=== PATIENT | male | born 2000 | race Two or more races ===

== ENCOUNTER 2021-08-19 12:34 | Outpatient (REF) | payer MEDICAID, SELFPAY ==
[2021-08-19 15:54] LABS: COVID-19 Test Positive (Negative)
== END 2021-08-19 12:35 | disposition home or self-care (01) ==
LOC: HO.LAB 12:34
PROVIDERS: Visit Provider Internal Medicine
DX: Z20.822 Contact with and (suspected) exposure to COVID-19 (principal)
CPT/HCPCS: 87635; C9803

== ENCOUNTER 2021-08-26 12:52 | Outpatient (REF) | payer MEDICAID, SELFPAY ==
[2021-08-26 13:21] LABS: Binax Internal Control QC Valid; Binax Now Covid-19 Ag Negative (Negative)
== END 2021-08-26 12:53 | disposition home or self-care (01) ==
LOC: HO.LAB 12:52
PROVIDERS: Visit Provider Internal Medicine
DX: Z20.822 Contact with and (suspected) exposure to COVID-19 (principal)
CPT/HCPCS: C9803

== ENCOUNTER 2023-02-17 10:31 | Outpatient (REF) | payer SELFPAY ==
[2023-02-17 13:05] LABS: ~Hepatitis C Antibody Nonreactive (Nonreactive)
[2023-02-19 15:38] LABS: HIV RNA PCR Qn Copies NOT DETECTED copies/mL (NOT DETECTED); HIV RNA PCR Qn Log Copies NOT DETECTED (NOT DETECTED)
== END 2023-02-17 10:32 | disposition home or self-care (01) ==
LOC: HO.HHCL 10:31
PROVIDERS: Visit Provider Family Medicine
DX: Z11.3 Encounter for screening for infections with a predominantly sexual mode of transmission (principal); Z11.4 Encounter for screening for human immunodeficiency virus [HIV]
CPT/HCPCS: 36415; 86803; 87536

== ENCOUNTER 2023-03-26 13:07 | Outpatient (REF) | payer MEDICAID, SELFPAY ==
[2023-03-27 04:07] LABS: CT PCR NOT DETECTED (Not Detect.); NG PCR NOT DETECTED (Not Detect.)
== END 2023-03-26 13:08 | disposition home or self-care (01) ==
LOC: HO.HHCL 13:07
PROVIDERS: Visit Provider Family Medicine
DX: Z11.3 Encounter for screening for infections with a predominantly sexual mode of transmission (principal)
CPT/HCPCS: 0353U

== ENCOUNTER 2023-06-24 09:40 | Outpatient (REF) | payer MEDICAID, SELFPAY | END 2023-06-24 09:41 | disposition home or self-care (01) | LOC: HO.HHCL 09:40 | PROVIDERS: Visit Provider Emergency Medicine | DX: Z13.89 Encounter for screening for other disorder (principal) ==

== ENCOUNTER 2024-06-13 11:31 | Outpatient (AMB) | payer OTHER, SELFPAY ==
--- NOTE | 2024-06-13 11:34 | A.OFFPC_ITS ---
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 Intake Note: new patient to establish care Operating Room Rn Required: No Allergies aspirin Allergy (Severe, Verified 06/13/24 11:49) Difficulty Breathing Medication List - Last Reconciled 06/13/24 by JACKSON Lopez No Known Home Meds Tobacco use date assessed: 06/13/24 Dental Screening Dental Screen Date: 06/13/24 Did you have a dental visit in the last 12 months?: Yes Did you have a dental problem in the last 6 months where you did not have access to dental care?: No Was dental information given to patient?: Patient has dentist HPI HPI Comments History of Present Illness Details 23 y/o M with seasonal allergies, Pyroni es Social: [place] , to male. family hx: Dad ESRD, Brother alive, Mom alive HTN Surgery: none Health Maintenance: Tdap 2020 Flu declined today, will get @ [employer] for the 2023 Specialists: Uro, missed appt d/t . Needs new referral. 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 Here today to est care and for a CPE. Limited [facility] Care records available. He feels well. Unsure of reason for Dads ESRD. Did require transplant. Skin - has dry, sensitive skin. Applies lotion, cool showers. Using coconut oil + effect. Sleep - works overnights. Appetite/Diet is ok. Engagement in risky behaviors: none Plan Offered and declined screening labs Uro and Optho referrals placed RTO 1 year for CPE, sooner PRN PFSH Medical History (Updated 06/13/24 @ 13:03 by JACKSON Lopez) No pertinent past medical history Surgical History (Updated 06/13/24 @ 11:40 by Barbara Brown MA) No pertinent past surgical history Family History Maternal Grandmother Diabetes Hypertension Mother Hypertension Social History (Updated 06/13/24 @ 11:38 by Barbara Brown MA) Household Members: Significant Other Both parents involved: No Caregiver staying overnight: No Housing: House Are you a primary healthcare administration internship to a significant other at home: No Do you presently have visiting nurse or other home services: No 75 years or older and lives alone: No Alcohol intake: current Alcohol intake frequency: a few times a month Patient Tobacco Use Status: Never used Tobacco e-Cigarette/Vaping Use: Never Used Second Hand Smoke Exposure: No service: No Current occupational status: employed Current occupation: security Cognitive needs: No Hearing needs: No Vision needs: Yes (wear glasses) Questionnaire PHQ-9 Over the last 2 weeks, how often have you been bothered by any of the following problems? 1. Little interest or pleasure in doing things: not at all 2. Feeling down, depressed, or hopeless: not at all 3. Trouble falling or staying asleep, or sleeping too much: not at all 4. Feeling tired or having little energy: not at all 5. Poor appetite or overeating: not at all 6. Feeling bad about yourself - or that you are a failure or have let yourself or your family down: not at all 7. Trouble concentrating on things, such as reading the newspaper or watching television: not at all 8. Moving or speaking so slowly that other people could have noticed. Or the opposite - being so fidgety or restless that you have been moving around a lot more than usual: not at all 9. Thoughts that you would be better off or of hurting yourself in some way : not at all Total score: 0 Depression Screening Interpretation: Negative Depression Screening Done: Yes 27581 - PHQ-9 Billing: Yes Source: Developed by Drs. Martin Khan, Cecilia Soto, Benjamin Jon and colleagues, with an educational ember from [employer]. Thrive Questionnaire Date Thrive assessed: 06/13/24 I am a: Patient What is your living situation today?: I have a steady place to live Within the past 12 months, did the food you bought not last and you didn't have the money to get more?: Never true Within the past 12 months, did you worry whether your food would run out before you got money to buy more?: Never true Do you have trouble paying for medicines?: No Do you have trouble getting transportation to medical appointments?: No Do you have trouble paying your heating and electricity bill?: No Do you have trouble taking care of your child, family member or friend?: No Do you have trouble with day-to-day activities such as bathing, preparing meals, shopping, managing finances, etc.?: No Are you currently unemployed and looking for a job?: No Are you interested in more education?: No Please select the resources that you would like help with: None Currently or been in a relationship where the following occur: No concerns reported THRIVE Score: 0 AUDIT C Alcohol Use Questionnaire (AUDIT-C) 1. How often do you have a drink containing alcohol?: 2-4 times a month 2. How many drinks containing alcohol do you have on a typical day when you are drinking?: 5 or 6 3. How often do you have six or more drinks on one occasion?: Monthly Total Score: 6 Score Reviewed/Action Taken: Yes PEARL-7 AMB Questionnaire PEARL-7 Date PEARL - 7 assessed: 06/13/24 Feeling nervous, anxious, or on edge: 0 = Not at all Not being able to stop or control worryin = Not at all Worrying too much about different things: 0 = Not at all Trouble relaxin = Not at all Being so restless that it is hard to sit still: 0 = Not at all Becoming easily annoyed or irritable: 0 = Not at all Feeling afraid as if something awful might happen: 0 = Not at all Total PEARL-7 score (0-4 normal; 5-9 mild; 10-14 moderate; 15-21 severe): 0 Source: Developed by Drs. Martin Khan, Cecilia Soto, Benjamin Jon and colleagues, with an educational ember from [employer]. PEARL-7 Assessment Billing PEARL-7 Assessment Tool: PEARL-7 Assessment 14331 Review of Systems Const Details: Constitutional: Denies fever. Skin: Denies rash. Eye: Denies eye pain. ENMT: Denies sore throat and nasal congestion. Respiratory: Denies shortness of breath and cough. Gastrointestinal: Denies nausea, vomiting or abdominal pain. Cardiovascular: Denies chest pain and syncope. Genitourinary: Denies dysuria. Musculoskeletal: Denies back pain and extremity pain. Neurologic: Denies headaches, confusion, and weakness. Psychiatric: Denies suicidal thoughts and substance abuse. Allergy/ Immunologic: Denies impaired immunity. Physical exam (Primary Care) Vital Signs: Last Vital Signs Pulse 59 06/13/24 11:41 Resp 13 06/13/24 11:41 BP 117/70 06/13/24 11:41 Pulse Ox 98 06/13/24 11:41 Oxygen Delivery Method Room Air 06/13/24 11:41 BMI result Body Mass Index 27.5 Tobacco/Smoking Status: Tobacco use Status Tobacco use date assessed 06/13/24 06/13/24 11:42 Patient Tobacco Use Status Never used Tobacco 06/13/24 11:42 e-Cigarette/Vaping Use Never Used 06/13/24 11:42 PHQ-9: PHQ-9 Score PHQ-9: Total score 0 06/13/24 11:51 Depression Screening Interpretation: Negative Thrive Assessment: Date of Thrive Assessment Date Thrive assessed 06/13/24 06/13/24 11:42 Currently or been in a relationship where the following occur: No concerns reported Const Other: General: Well developed, well nourished, in no acute distress. Appears stated age. Head: Normocephalic, atraumatic. Eyes: Pupils are equal, round and reactive to light and accommodation. Conjunctivae are clear. Vision grossly normal. Ears: TMs clear AU, EACS WNL Nose: Patent, without discharge. Mouth: There are no ulcers or lesions noted. No inflammation, no post nasal drip, no plaques nor exudates. Neck: Supple, no adenopathy or thyromegaly. Lungs: Clear to auscultation bilaterally. No rales, rhonchi or wheeze noted. Good air flow in all mejía. Heart: Regular rate and rhythm. No murmurs, click, rubs or gallops are noted. Abdomen: Bowel sounds present in all quadrants. The abdomen is soft, nontender, with no masses or organomegaly noted. No hernias are noted. Musculoskeletal: Joints are nontender, without swelling, redness, or effusions. Range of motion is observed to be normal. Pulses: Peripheral pulses are equal and palpable bilaterally. Extremities: No clubbing, cyanosis nor edema is noted. Neurologic: Gait and station normal. Cranial Nerves 2-12 intact. Motor strength grossly symmetrical and intact. No sensory loss. Balance normal. Skin: No rashes, ulcers, or lesions noted. Turgor is good. Skin color is good. Hair and nails are without abnormalities. Psych: Normal eye contact, affect and mood appropriate, and normal interactions. Patient is alert and appropriate to context. Coding Level of Care Code New Pt Prev Care 18-39yr(38319 Diagnoses Encounter for general adult medical examination without abnormal findings Z00.00 Penile curve Q55.61 Blurred vision H53.8 Seasonal allergies J30.2 Additional Codes PEARL-7 Assessment Billing - PEARL-7 Assessment Tool: PEARL-7 Assessment 21320 ([id number]) PHQ-9 - 93094 - PHQ-9 Billing: Yes ([id number]) Assessment & Plan Assessment & Plan (1) Encounter for general adult medical examination without abnormal findings: Code(s): Z00.00 - Encounter for general adult medical examination without abnormal findings Plan: . (2) Penile curve: Code(s): Q55.61 - Curvature of penis (lateral) Category: Medical Plan: . (3) Blurred vision: Code(s): H53.8 - Other visual disturbances Category: Medical Plan: . (4) Seasonal allergies: Code(s): J30.2 - Other seasonal allergic rhinitis Category: Medical Plan: . Orders: Referrals Urology Referral Q55.61 - Curvature of penis (lateral) Ophthalmology Referral H53.8 - Other visual disturbances Patient Instructions: Walk-In Care (Urgent Care): We Make it Easy Walk-in for urgent medical issues such as: ? Seasonal Allergies ? Insect Bites ? Cough ? Diarrhea ? Acute Asthma Attacks ? Back, Knee or Joint Pain ? Ear Infection ? Fever without a Rash ? Headaches ? Nausea ? [place] [facility], Rash or Skin Irritation ? Sore Throat ? Sports Physicals ? Vomiting Most insurances are accepted. Patients do not need to be part of the [facility] to seek care at the walk-in clinic. Locations [facility], [place] [address] ? [phone] [facility] Walk-In [facility] in [place] provides services to ages 18 and over. Open Thursday-Thursday: 8 a.m. to 5 p.m. and Thursday: 9 a.m. to 3 p.m.* *Hours may vary due to staffing availability. To confirm Walk-In Care hours in [place], please call [phone]. [address] [facility], [place] [address] ? [phone] [facility] Walk-In [facility] in [place] provides services to ages 12 and over. Open Thursday-Thursday: 8 a.m. to 5 p.m. Hours may vary due to staffing availability. To confirm Walk-In Care hours in [place], please call [phone]. LABORATORY SERVICES: [facility] Lab ? Primary Location [address] [place] [address] Thursday through Thursday 6:00 AM ? 5:00 PM Thursday 7:00 AM ? 11:00 AM* [phone] The [facility] Lab is centrally located near the front entrance of the [facility] for easy outpatient access. Convenient parking is provided for outpatients. *Hours may vary due to staffing availability. To confirm Laboratory hours for any location, please call [phone]. Offsite Location For your convenience, we offer offsite laboratory draw stations at the following locations: [address] [place] [address] ? [address], [address] Thursday through Thursday 7:30 AM ? 1:00 PM* [phone] *Hours may vary due to staffing availability. To confirm Laboratory hours for any location, please call [phone]. [place] ? [address] Thursday through Thursday 6:00 AM ? 3:30 PM* Thursday 6:30 AM ? 3 PM* [phone] *Hours may vary due to staffing availability. To confirm Laboratory hours for any location, please call [phone] [place] [address] Thursday through Thursday 7:30 AM ? 4:00 PM* [phone] *Hours may vary due to staffing availability. To confirm Laboratory hours for any location, please call [phone] [place] [address] Thursday through 9:00 AM ? 4:00 PM* *Hours may vary due to staffing availability. To confirm Laboratory hours for any location, please call [phone]. Appointments are not necessary. Walk-ins are welcome. Like all the departments throughout the [facility], our Lab undergoes frequent reviews to ensure the quality and accuracy of test results, and our staff takes special pride in its status as a nationally accredited facility. Patient Portal: ONE PATIENT. ONE RECORD. BETTER CARE. [facility] has a fully integrated, cutting- edge mobile electronic health information system that has revolutionized the way we care for our patients and manage our organization. This system improves communication and coordination enabling us to provide safe, higher-quality care, and an overall positive experience for staff and patients. Our first priority, as always, is to deliver the highest quality care possible. The system is running in the background supporting that priority. This portal is for all [facility] services and practices. If you are experiencing any technical difficulties with enrolling or logging into the Patient Portal please complete the [facility] Patient Portal Technical Support Form. [facility] now offers a new secure on-line interactive tool for patients to review their health information ? Patient Portal. This interactive web portal will enable patients and their families to take an active role in their care by providing easy, secure access to their health information via the internet. The Patient Portal provides patients with instant access to their health information, including laboratory results, medications, allergies, demographic information, visit history, and more. In addition to managing their own care, parents and health care proxies with authorized consent will appreciate the ability to access the records of those individuals for whom they provide care. Please note: if you wish to gain access (Proxy) to another patient?s portal, you will be required to come to the Medical Records Department in person at [facility]. Both the patient giving proxy access and the proxy will need to provide photo identification and complete the appropriate authorization. The Patient Portal also allows track their appointments online. The [facility] Patient Portal also saves patients time by allowing them to submit updates to their demographic and contact information prior to their visits. Portal email notifications will also alert patients to any new activity on their portal, such as test results and new appointments. In order to initially enroll in the [facility] Patient Portal, you will need to enter some required information including the following: ? your [facility] Medical Record number ? your personal home email address ? name ? date of Please note: In order to enroll in the [facility] Patient Portal, we need to have your email address on file in your electronic medical record. The email address needs to be specific for one person (yourself) in order for your Portal enrollment to be successful. You can update your email address in person with our Registration staff when you are registering for a hospital visit. Otherwise, you will need to come to the Health Information Management (Medical Records) Department at [facility]. We are open from Thursday ? Thursday from 7:30 a.m. ? 4:30 p.m. You will be required to present a photo id. Once you have successfully enrolled in the Patient Portal, you will receive a one-time user id and password for the Portal, sent to your email address. This will allow you to log into the Patient Portal within 99 hrs and reset your own logon id and password, and define personal security questions. Once your perma nent login and password have been set, you can log into the [facility] Patient Portal at any time via the blue button above or from the Portal Logon button on any page of the [facility] website. [facility] and [facility] encourage all of our patients to enroll in Patient Portal as it presents a valuable opportunity for patients and their families to actively participate in their care and stay healthy Welcome to [facility]. We look forward to working with you. Health screenings for men ages 40 to 64 You should visit your health care provider regularly, even if you feel healthy. The purpose of these visits is to: Screen for medical issues Assess your risk for future medical problems Encourage a healthy lifestyle Update vaccinations and other preventive care services Help you get to know your provider in case of an illness Information Even if you feel fine, you should still see your provider for regular checkups. These visits can help you avoid problems in the future. For example, the only way to find out if you have high blood pressure is to have it checked regularly. High blood sugar and high cholesterol level also may not have any symptoms in the early stages. Simple blood tests can check for these conditions. There are specific times when you should see your provider or receive specific health screenings. The [place] Preventive Services Task Force publishes a list of recommended screenings. Below are screening guidelines for men ages 40 to 64. BLOOD PRESSURE SCREENING Have your blood pressure checked at least once every year. Watch for blood pressure screenings in your area. Ask your provider if you can stop in to have your blood pressure checked. Ask your provider if you need your blood pressure checked more often if: You have diabetes, heart disease, kidney problems, or are overweight or have certain other health conditions You have a first-degree relative with high blood pressure You are Black Your blood pressure top number is from 120 to 129 mm Hg, or the bottom number is from 70 to 79 mm Hg If the top number is 130 mm Hg or greater or the bottom number is 80 mm Hg or greater, this is considered stage 1 hypertension. Schedule an appointment with your provider to learn how you can lower your blood pressure. Effects of age on blood pressure CHOLESTEROL SCREENING Cholesterol screening should begin at age 35 for men with no known risk factors for coronary heart disease. Repeat cholesterol screening should take place: Every 5 years for men with normal cholesterol levels More often if changes occur in lifestyle (including weight gain and diet) More often if you have diabetes, heart disease, kidney problems, or certain other conditions COLORECTAL CANCER SCREENING If you are under age 45, talk to your provider about getting screened. You may need to be screened if you have a strong family history of colon cancer or polyps. Screening may also be considered if you have risk factors such as a history of inflammatory bowel disease or polyps. If you are age 45 to 75, you should be screened for colorectal cancer. There are several screening tests available: A stool-based fecal occult blood (gFOBT) or fecal immunochemical test (FIT) every year A stool sDNA test every 1 to 3 years Flexible sigmoidoscopy every 5 years or every 10 years with stool testing FIT done every year CT colonography (virtual colonoscopy) every 5 years Colonoscopy every 10 years You may need a colonoscopy more often if you have risk factors for colorectal cancer, such as: Ulcerative colitis A personal or family history of colorectal cancer A history of growths in your colon called adenomatous polyps DENTAL EXAM Go to the dentist once or twice every year for an exam and cleaning. Your dentist will evaluate if you have a need for more frequent visits. DIABETES SCREENING All adults who do not have risk factors for diabetes should be screened starting at age 35 and repeated every 3 years. If you have other risk factors for diabetes, such as a first degree relative with diabetes, overweight or obesity, high blood pressure, prediabetes, or a history of heart disease, you may be tested more often. If you are overweight and have other risk factors, such as high blood pressure and are planning to become , screening is recommended. EYE EXAM Have an eye exam every 2 to 4 years ages 40 to 54 and every 1 to 3 years ages 55 to 64. Your provider may recommend more frequent eye exams if you have vision problems or glaucoma risk. Have an eye exam that includes an examination of your retina (back of your eye) at least every year if you have diabetes. IMMUNIZATIONS Commonly needed vaccines include: Flu shot: get one every year COVID-19 vaccine: ask your provider what is best for you Tetanus-diphtheria and acellular pertussis (Tdap) vaccine: have as one of your tetanus-diphtheria vaccines if you did not receive it as an adolescent Tetanus-diphtheria: have a booster (or Tdap) every 10 years Varicella vaccine: receive 2 doses if you never had chickenpox or the varicella vaccine and were born in 1979 or after Hepatitis B vaccine: receive 2, 3, or 4 doses, depending on your exact circumstances, if you did not receive these as a child or adolescent, until age 59 Shingles (herpes zoster) vaccine: at or after age 50 Ask your provider if you should receive other immunizations, especially if you have certain medical conditions, such as diabetes or are at increased risk for some diseases such as pneumonia. INFECTIOUS DISEASE SCREENING Screening for hepatitis C: all adults ages 18 to 79 should get a one-time test for hepatitis C. Screening for human immunodeficiency virus (HIV): all people ages 15 to 65 should get a one-time test for HIV. Depending on your lifestyle and medical history, you may need to be screened for infections such as syphilis, chlamydia, and other infections. LUNG CANCER SCREENING You should have an annual screening for lung cancer with low-dose computed tomography (LDCT) if: You are age 50 to 80 years AND You have a 20 pack-year smoking history AND You currently smoke or have quit within the past 15 years OSTEOPOROSIS SCREENING If you are age 50 to 64 and have risk factors for osteoporosis, you should discuss screening with your provider. Risk factors can include long-term steroid use, low body weight, smoking, heavy alcohol use, having a fracture after age 50, or a family history of hip fracture or osteoporosis. Osteoporosis PHYSICAL EXAM All adults should visit their provider from time to time, even if they are healthy. The purpose of these visits is to: Screen for diseases Assess risk of future medical problems Encourage a healthy lifestyle Update vaccinations and other preventive care services Maintain a relationship with a provider in case of an illness Your height, weight, and body mass index (BMI) should be checked at every exam. During your exam, your provider may ask you about: Depression and anxiety Diet and exercise Alcohol and tobacco use Safety, such as use of seat belts and smoke detectors Your medicines and risk for interactions PROSTATE CANCER SCREENING If you're 55 through 69 years old, before having the test, talk to your provider about the pros and cons of having a PSA test. Ask about: Whether screening decreases your chance of dying from prostate cancer. Whether there is any harm from prostate cancer screening, such as side effects from testing or overtreatment of cancer when discovered. Whether you have a higher risk of prostate cancer than others. If you are age 55 or younger, screening is not generally recommended. You should talk with your provider about if you have a higher risk for prostate cancer. Risk factors include: Having a family history of prostate cancer (especially a brother or father) Being If you choose to be tested, the PSA blood test is repeated over time (yearly or less often), though the best frequency is not known. Prostate examinations are no longer routinely done on men with no symptoms. Prostate cancer SKIN EXAM Your provider may check your skin for signs of skin cancer, especially if you're at high risk. People at high risk include those who have had skin cancer before, have close relatives with skin cancer, or have a weakened immune system. TESTICULAR EXAM The [place] Preventive Services Task Force (USPSTF) now recommends against performing testicular self-exams. Doing testicular self-exams has been shown to have little to no benefit.
[2024-06-13 11:41] VITALS: BP 117/70; PULSE 59; RESP 13; O2SAT 98; BMI 27.5
== END 2024-06-13 12:09 | disposition home or self-care (01) ==
PROVIDERS: PCP Nurse Practitioner Family; Visit Provider Nurse Practitioner Family
DX: Z00.00 Encounter for general adult medical examination without abnormal findings (principal); Q55.61 Curvature of penis (lateral); H53.8 Other visual disturbances; J30.2 Other seasonal allergic rhinitis

== ENCOUNTER → 2024-06-13 11:31 | Outpatient (BNVA) | payer OTHER, SELFPAY | PROVIDERS: PCP Nurse Practitioner Family; Visit Provider Nurse Practitioner Family | DX: Z00.00 Encounter for general adult medical examination without abnormal findings (principal); Q55.61 Curvature of penis (lateral); H53.8 Other visual disturbances; J30.2 Other seasonal allergic rhinitis | CPT/HCPCS: 96127; 99385 ==

== ENCOUNTER 2024-08-09 14:34 | Outpatient (AMB) | payer OTHER, SELFPAY ==
--- NOTE | 2024-08-09 14:43 | A.OFFVIS_ITS ---
Intake Visit Reasons: peyronies Intake Note: New patient is present for Peyronies Urology Med: None Antibiotic Allergy: None Blood Thinner: None Stone Polisher Hand Required: No Accompanied by: Self / Same As Patient Allergies aspirin Allergy (Severe, Verified 08/09/24 15:20) Difficulty Breathing Medication List - Last Reconciled 08/09/24 by JACKSON Romo pentoxifylline ER 400 mg PO BID 90 days vitamin E (dl, acetate) 450 mg PO DAILY 90 days HPI Comments Details: Benjy is a very pleasant 24-year-old male patient of Dr. Andrews. He presents to the office today as a new patient for Peyronie's disease. In discussion with the patient today he reports a longstanding history of a curvature to his penis. He reports curvature has been present since as long as he can remember. He denies following up with Urology in the past however had a recent PCP appointment to establish care and recommendations were made for urology referral for further assessment evaluation. In assessment of the patient today the penis is uncircumcised however it is in a flaccid state therefore unable to assess curvature at this time. We discussed taking photos when penis is an in erected state. He otherwise denies any bothersome urinary issues. He denies any issues obtaining and maintaining his erections. He also denies any issues with his male partner during sexual activity. He denies any previous trauma. No abnormalities noted within the assessment today. He denies urinary urgency, urinary frequency, incontinence, nocturia, hematuria, dysuria, foul smelling urine, changes to urinary stream, flank pain, fever, and or chills. He is happy with his current voiding parameters. [facility] Medical History No pertinent past medical history Surgical History No pertinent past surgical history Family History Maternal Grandmother Diabetes Hypertension Mother Hypertension Social History Household Members: Significant Other Both parents involved: No Caregiver staying overnight: No Housing: House Are you a primary laboratory animal care veterinarian to a significant other at home: No Do you presently have visiting nurse or other home services: No 75 years or older and lives alone: No Alcohol intake: current Alcohol intake frequency: a few times a month Patient Tobacco Use Status: Never used Tobacco e-Cigarette/Vaping Use: Never Used Second Hand Smoke Exposure: No service: No Current occupational status: employed Current occupation: security Cognitive needs: No Hearing needs: No Vision needs: Yes (wear glasses) Review of Systems Const All systems reviewed & are unremarkable except as noted in HPI and below Physical Exam Const General: cooperative, healthy appearing, comfortable, no acute distress, well developed, alert and awake Orientation/consciousness: patient oriented x3 Limitations: no limitations HEENT Head: Yes normal to inspection, Yes normocephalic and Yes atraumatic Ears: hearing grossly normal bilaterally Eyes General: appearance normal, both eyes and all related structures Neck Neck: Yes normal visual inspection and Yes trachea midline Chest Chest palpation & inspection: normal inspection of the chest Resp Effort & Inspection: normal respiratory effort and able to speak in complete sentences Cardio Rate: regular rate GI Inspection: Yes normal to inspection General: Yes no CVA tenderness Male General Exam: Yes normal external exam Penis: normal penis and uncircumcised Meatus: meatus normal Scrotum: scrotum normal Testes: Testes normal Back/Spine/Pelvis Back: no CVA tenderness Skin General skin exam: no rashes or lesions noted Neuro General: patient oriented x3 Extrem General: Yes normal to inspection Psych Appearance: grossly normal and well kempt Mental Status: mental status grossly normal Speech and movement: Normal speech and movement present and Clear speech present Affect: normal affect Attitude: cooperative Thought process: Normal thought process present Thought content: Normal thought content present Insight: Fair insight present (Psych) Judgement: Fair judgement present (Psych) Assessment & Plan Assessment & Plan (1) Penile curve: Code(s): Q55.61 - Curvature of penis (lateral) Category: Medical (2) Peyronie's disease: Code(s): N48.6 - Induration penis plastica Category: Medical Plan We discussed further treatment options of Peyronie's disease and risks and benefits of these treatment options. He currently denies any bothersome urinary issues or concerns. He reports be happy with current voiding parameters. We discussed potential causes of Peyronie's disease. Start pentoxifylline and vitamin-E as discussed and prescribed. Information provided regarding penile pump and Peyronie's protocol. Follow-up in 3-6 months or sooner with any issues, concerns, and or questions. Medications: New vitamin E (dl, acetate) 450 mg PO DAILY 90 caps 1RF 90 days N48.6 - Induration penis plastica pentoxifylline ER administer with meals 400 mg PO BID 180 tabs 1RF 90 days Patient Instructions: The patient had an opportunity to ask questions regarding the treatment plan. All questions were answered. Physical exam, labs, and imaging were discussed and reviewed in detail. As well as risks, benefits, and discussion of treatment choices. No major barriers to understanding were identified. The patient expressed understanding and agreement with the above treatment plan. The patient was made aware they should contact our office by phone for worsening of their current condition, the appearance of new symptoms, or with any questions or concerns. Compliance is encouraged with any medications and follow up testing that is ordered. It is a privilege to be allowed the opportunity to participate in? your urological care.? Again, if you have any questions or concerns If you have any questions or concerns please do not hesitate to contact me. The office is [phone]. This note is constructed using voice recognition software. While every effort has been made to ensure accuracy business and marketing teacher errors may have been included. Yours sincerely, JACKSON Romo Coding Level of Care Code New Pt Level 4 (39611) Diagnoses Penile curve Q55.61 Peyronie's disease N48.6
== END 2024-08-09 15:20 | disposition home or self-care (01) ==
PROVIDERS: PCP Nurse Practitioner Family; Visit Provider Nurse Practitioner Family
DX: Q55.61 Curvature of penis (lateral) (principal); N48.6 Induration penis plastica
CPT/HCPCS: 99204

== ENCOUNTER 2024-09-07 10:01 | Outpatient (AMB) | payer OTHER, SELFPAY ==
--- NOTE | 2024-09-07 10:02 | A.OFFPC_ITS ---
Vital Signs 09/07/24 10:07 Height 5 ft 10 in Weight 195 lb 8 oz BMI 28.0 BP 98/68 Blood Pressure Location Lt brachial Position Sitting Respiration 12 Pulse 60 Pulse Source Pulse Oximeter Temp 97.8 F Temp Source Oral Pulse Oximetry (%) 100 Oxygen Delivery Method Room Air Intake Visit Reasons: medication paperwork Intake Note: Patient needs paperwork filled out Weigher Bulker Required: No Allergies aspirin Allergy (Severe, Verified 09/07/24 10:22) Difficulty Breathing Medication List - Last Reconciled 09/07/24 by Pretty Andrews, GOLF COURSE ASSISTANT- pentoxifylline ER 400 mg PO BID 90 days vitamin E (dl, acetate) 450 mg PO DAILY 90 days Tobacco use date assessed: 09/07/24 Dental Screening Dental Screen Date: 06/13/24 HPI HPI Comments History of Present Illness Details 24 y/o M with seasonal allergies, Pyron ies Social: [place] , to male. family hx: Dad ESRD, Brother alive, Mom alive HTN Surgery: none Health Maintenance: Tdap 2020 Flu @ [facility] for the 2023 Specialists: Uro Classifier no longer ff'd Optho last eye exam > 2 years ago. The patient is a 24-year-old male presenting for assistance with insurance paperwork concerning prescription medications for Peyronie's Disease. The patient reports that his insurance company initially did not inform him about the lack of coverage for certain medications. Upon finding this, he contacted them when a prescription for Pentoxifylline was marked as >$200. He received paperwork from [employer] to be submitted to the prescribing provider, Jessica Millan, for completion. There was a misunderstanding regarding another medication, Vraylar, which was for his partner under the same insurance plan. The patient states he has not started the new medication for Peyronie's Disease pending further insurance proceedings. The patient's emphasis is on resolving insurance matters to commence prescribed treatments. He relayed previous participation in a mass medical event two months ago, where he had multiple evaluations, including flu vaccination, HIV screening, dental, and x-rays, ensuring up-to-date records. Physical Exam General: Awake, alert. No apparent distress Speaking in full sentences Pleasant and cooperative Results - Labs: Flu vaccination confirmed at [facility] - Tests: X-rays and HIV blood draw condu cted two months ago during a medical event per report, i dont have these Discussion Notes During the visit, we discussed the patient's issues with insurance paperwork for his prescription. I informed him about the necessity of completing and forwarding the required paperwork to Jessica Cochran's office for processing. We considered the options of either forwarding information to Uro office for direct completion or having her office reach out to the patient directly, with the patient preferring the latter due to comfort and reliability. The patient is aware of the urgency in proceeding with insurance claims to initiate his prescribed treatment for Peyronie's Disease. Recommendations for follow-up were provided in regards to ensuring all necessary documentation is submitted and processed efficiently. Forms scanned into chart. Message sent to Uro team. In regards to his partners meds, advised he would need to fu with his prescriber for insurance issuesn Plan - Facilitate the submission of insurance paperwork to [facility] [place] Pentoxifylline to ensure coverage - Await contact from URO office regardin g the completion and further instructions for the insurance claim - Maintain vaccinations and screenings a s performed at the recent medical event - Ensure the patient understands the imp ortance of timely paperwork processing for prescription medications to begin treatment for Peyronie's Disease Patient was informed and verbally consented to the use of an ambient scribe for clinic note documentation during this visit. Total time spent caring for the patient today was 20 minutes. This includes time spent before the visit reviewing the chart, time spent during the visit, and time spent after the visit on documentation, reviewing laboratory results, diagnostic imaging, medications, performing a medically necessary evaluation, counseling on diagnoses, care coordination, ordering appropriate tests, ordering appropriate medications, review of tests performed by other providers, reporting test results with the patient, communication with other healthcare providers. REPLACED BY [facility] Medical History No pertinent past medical history Surgical History No pertinent past surgical history Family History Maternal Grandmother Diabetes Hypertension Mother Hypertension Social History Household Members: Significant Other Both parents involved: No Caregiver staying overnight: No Housing: House Are you a primary farm or ranch animal caretaker to a significant other at home: No Do you presently have visiting nurse or other home services: No 75 years or older and lives alone: No Alcohol intake: current Alcohol intake frequency: a few times a month Patient Tobacco Use Status: Never used Tobacco e-Cigarette/Vaping Use: Never Used Second Hand Smoke Exposure: No service: No Current occupational status: employed Current occupation: security Cognitive needs: No Hearing needs: No Vision needs: Yes (wear glasses) Questionnaire PHQ-9 Over the last 2 weeks, how often have you been bothered by any of the following problems? 1. Little interest or pleasure in doing things: not at all 2. Feeling down, depressed, or hopeless: not at all 3. Trouble falling or staying asleep, or sleeping too much: not at all 4. Feeling tired or having little energy: not at all 5. Poor appetite or overeating: not at all 6. Feeling bad about yourself - or that you are a failure or have let yourself or your family down: not at all 7. Trouble concentrating on things, such as reading the newspaper or watching television: not at all 8. Moving or speaking so slowly that other people could have noticed. Or the opposite - being so fidgety or restless that you have been moving around a lot more than usual: not at all 9. Thoughts that you would be better off or of hurting yourself in some way: not at all Total score: 0 Depression Screening Interpretation: Negative Depression Screening Done: Yes 28608 - PHQ-9 Billing: Yes Source: Developed by Drs. Martin Khan, Cecilia Soto, Benjamin Jon and colleagues, with an educational ember from [employer]. Thrive Questionnaire Date Thrive assessed: 09/07/24 I am a: Patient What is your living situation today?: I have a steady place to live Within the past 12 months, did the food you bought not last and you didn't have the money to get more?: Never true Within the past 12 months, did you worry whether your food would run out before you got money to buy more?: Never true Do you have trouble paying for medicines?: No Do you have trouble getting transportation to medical appointments?: No Do you have trouble paying your heating and electricity bill?: No Do you have trouble taking care of your child, family member or friend?: No Do you have trouble with day-to-day activities such as bathing, preparing meals, shopping, managing finances, etc.?: No Are you currently unemployed and looking for a job?: No Are you interested in more education?: No Please select the resources that you would like help with: None Currently or been in a relationship where the following occur: No concerns reported THRIVE Score: 0 AUDIT C Alcohol Use Questionnaire (AUDIT-C) 1. How often do you have a drink containing alcohol?: Monthly or less 2. How many drinks containing alcohol do you have on a typical day when you are drinking?: 3 or 4 3. How often do you have six or more drinks on one occasion?: Less than monthly Total Score: 3 Score Reviewed/Action Taken: Yes PEARL-7 AMB Questionnaire PEARL-7 Date PEARL - 7 assessed: 09/07/24 Feeling nervous, anxious, or on edge: 0 = Not at all Not being able to stop or control worryin = Not at all Worrying too much about different things: 0 = Not at all Trouble relaxin = Not at all Being so restless that it is hard to sit still: 0 = Not at all Becoming easily annoyed or irritable: 0 = Not at all Feeling afraid as if something awful might happen: 0 = Not at all Total PEARL-7 score (0-4 normal; 5-9 mild; 10-14 moderate; 15-21 severe): 0 Source: Developed by Drs. Martin Khan, Cecilia Soto, Benjamin Jon and colleagues, with an educational ember from [employer]. PEARL-7 Assessment Billing PEARL-7 Assessment Tool: PEARL-7 Assessment 00720 Physical exam (Primary Care) Vital Signs: Last Vital Signs Temp 97.8 F 09/07/24 10:07 Pulse 60 09/07/24 10:07 Resp 12 09/07/24 10:07 BP 98/68 09/07/24 10:07 Pulse Ox 100 09/07/24 10:07 Oxygen Delivery Method Room Air 09/07/24 10:07 BMI result Body Mass Index 28.0 Tobacco/Smoking Status: Tobacco use Status Tobacco use date assessed 09/07/24 09/07/24 10:08 Patient Tobacco Use Status Never used Tobacco 09/07/24 10:08 e-Cigarette/Vaping Use Never Used 09/07/24 10:08 PHQ-9: PHQ-9 Score PHQ-9: Total score 0 09/07/24 10:08 Depression Screening Interpretation: Negative Thrive Assessment: Date of Thrive Assessment Date Thrive assessed 09/07/24 09/07/24 10:08 Currently or been in a relationship where the following occur: No concerns reported Coding Level of Care Code Est Pt Level 3 (20675) Complex EM visit Add On G2211 Diagnoses Encounters for administrative purposes Z02.9 Peyronie's disease N48.6 Additional Codes PEARL-7 Assessment Billing - PEARL-7 Assessment Tool: PEARL-7 Assessment 95241 ([id number]) PHQ-9 - 19678 - PHQ-9 Billing: Yes ([id number]) Assessment & Plan Assessment & Plan (1) Encounters for administrative purposes: Code(s): Z02.9 - Encounter for administrative examinations, unspecified (2) Peyronie's disease: Code(s): N48.6 - Induration penis plastica Category: Medical Plan / Patient Instructions: Patient Instructions - Contact Uro office to submit the completed paperwork for prescription coverage - Bring any original paperwork received for medication coverage to Uro office if required - Follow up with his insurance provider to confirm approval and coverage details
[2024-09-07 10:07] VITALS: BP 98/68; PULSE 60; RESP 12; TEMP 36.6; O2SAT 100; BMI 28.0
--- OUTSIDE RECORDS SUMMARY | 2024-09-07 10:51 | XMS_ITS | Encounter Summary ---
Author Organization [employer] [facility] Address [address] [place] [address] [address] [address] Care Team Providers Care Wicker Worker Name Role Phone Brittney Salinas MD Primary Care Provider [phone] Encounter Details Date Type Department Care Team (Latest Contact Info) Description 01/29/2022 Abstract [facility] CONVERSIONS Dental, Provider, DDS Social History Tobacco Use Types Packs/Day Years Used Date Smoking Tobacco: Never Assessed Sex and Gender Information Value Date Recorded Sex Assigned at Male 06/02/2022 10:20 AM EDT Legal Sex Male 10:20 AM EDT Gender Identity Male 06/02/2022 10:20 AM EDT Sexual Orientation Bisexual 05/06/2024 4: 14 AM EDT documented as of this encounter Plan of Treatment Not on file documented as of this encounter Visit Diagnoses Not on filedocumented in this encounter Care Teams Wicker Worker Relationship Specialty Start Date End Date Brittney Salinas MD [address] [place] [id number] PCP - General Family Medicine 08/03/18 documented as of this encounter
--- OUTSIDE RECORDS SUMMARY | 2024-09-07 10:51 | XMS_ITS | Encounter Summary ---
Author Organization [employer] [facility] Address [address] [place] [address] [address] [address] Care Team Providers Care Cryptography Teacher Name Role Phone Brittney Salinas MD Primary Care Provider [phone] Encounter Details Date Type Department Care Team (Latest Contact Info) Description 09/22/2019 Abstract [facility] CONVERSIONS Dental, Provider, DDS Social [...] on filedocumented in this encounter Care Teams Cryptography Teacher Relationship Specialty Start Date End Date Brittney Salinas MD [address] [place] [id number] PCP - General Family Medicine 08/03/18 documented as of this encounter
--- OUTSIDE RECORDS SUMMARY | 2024-09-07 10:51 | XMS_ITS | Continuity of Care Document ---
Author Name [facility] Organization [facility] Care Team Providers Care Broom Bundler Name Role Phone [facility] Unavailable Unavailable Allergies, Adverse Reactions, Alerts Combined list of allergies from Department of Defense and Veterans Affairs facilities. It does not include entries that were removed or entered in error. Substance Category Reaction Severity Reaction type Status Date Reported Comments Source No Known Allergies Drug allergy (disorder) active 11/03/2022 [facility] Immunizations Combined list of available immunizations from the Department of Defense and Veterans Affairs facilities. Immunization Series Date Given Administered By Site Reaction Lot Number CVX Code Drug Drill Sergeant Status Comments Source Influenza, inj, MDCK, quadrivalent- pf 2020 [id number] Seqirus complet ed Influenza , inj, MDCK, quadrival ent-pf 05/02/21 Given Ambulat ory Pharmac y COVID Vaccine Pfizer 2020 [id number] Unknown complet ed COVID Vaccine Pfizer 01/12/21 Given Ambulat ory Pharmac y COVID Vaccine Pfizer 2020 [id number] Unknown complet ed COVID Vaccine Pfizer 12/22/20 Given Ambulat ory Pharmac y influenza, injectable, quadrivalent- pf 2018 [id number] 150 Seqirus complet ed influenza , injectabl e, quadrival ent-pf 05/07/19 Given Ambulat ory Pharmac y influenza, injectable, quadrivalent- pf 2018 [id number] 150 GlaxoSmithKli ne complet ed influenza , injectabl e, quadrival ent-pf 08/07/18 Given Ambulat ory Pharmac y influenza, injectable, quadrivalent- pf 2017 [id number] 150 GlaxoSmithKli ne complet ed influenza , injectabl e, quadrival ent-pf 07/03/18 Given Ambulat ory Pharmac y meningococcal A,C,Y,W-135 (MCV4P) 2017 [id number] 114 sanofi pasteur complet ed meningoco ccal A,C,Y,W-1 35 (MCV4P) 02/08/18 Given Ambulat ory Pharmac y tetanus, diphtheria, acellular pertu is 2017 [id number] 115 GlaxoSmLvmamaKli ne complet ed tetanus, diphtheri a, acellular pertussis 02/08/18 Given Ambulat ory Pharmac y adenovirus vaccine, live 2017 [id number] 143 Teva Pharmaceutica ls complet ed adenoviru s vaccine, live 02/08/18 Given Ambulat ory Pharmac y poliovirus vaccine, inactivated 2017 [id number] 10 sanofi pasteur complet ed polioviru s vaccine, inactivat ed 02/08/18 Given Ambulat ory Pharmac y measles, mumps and rubella virus vaccine 1 2017 UNK 03 Unknown (UNK) Not Given measles, mumps and rubella virus vaccine DoD poliovirus vaccine, inactivated 1 2017 [id number] 10 Sanofi Pasteur (PMC) complet ed polioviru s vaccine, inactivat ed DoD varicella virus vaccine 1 2017 UNK 21 Unknown (UNK) Not Given varicella virus vaccine DoD hepatitis B vaccine, adult dosage 1 2017 [id number] 43 Unknown (UNK) Not Given hepatitis B vaccine, adult dosage DoD hepatitis A vaccine, adult dosage 1 2017 UNK 52 Unknown (UNK) Not Given hepatitis A vaccine, adult dosage DoD meningococcal polysaccharid e (groups A, C, Y and W-135) diphtheria toxoid conjugate vaccine (MCV4P) 1 2017 [id number] 114 Sanofi Pasteur (PMC) complet ed meningoco ccal polysacch aride (groups A, C, Y and W-135) diphtheri a toxoid conjugate vaccine (MCV4P) DoD tetanus toxoid, reduced diphtheria toxoid, and acellular pertu is vaccine, adsorbed 1 2017 [id number] 115 SmithKline (SKB) complet ed tetanus toxoid, reduced diphtheri a toxoid, and acellular pertussis vaccine, adsorbed DoD Adenovirus, type 4 and type 7, live, oral 1 2017 [id number] 143 Bulu Box (BRR) complet ed Adenoviru s, type 4 and type 7, live, oral DoD Vital Signs Combined list of inpatient and outpatient Vital Signs from Department of Defense and Veterans Affairs, ranging from 12 months to all on record, depending upon the facility. Vital Sign Value Date Comments Source Temperature Oral 37.0Cel 09/18/2022 14:10:00 Ambulatory Pharmacy Systolic Blood Pressure 130mm[Hg] 09/18/2022 14:10:00 Ambulatory Pharmacy Diastolic Blood Pressure 71mm[Hg] 09/18/2022 14:10:00 Ambulatory Pharmacy Peripheral Pulse Rate 74bpm 09/18/2022 14:10:00 Ambulatory Pharmacy Respiratory Rate 17br/min 09/18/2022 14:10:00 Ambulatory Pharmacy Encounters Combined list of: 1) Encounters from Department of Veterans Affairs facilities going back up to thelast 18 months. 2) Encounters from the Department of Defense facilities going back up to 280 months. Location Location Details Encounter Type Encounter Number Reason For Visit Attending Provider ADM Date DC Date Status Disposition Source [facility](PES Optometry -Trainee) OUTPATIENT [id number] MEL GUZMÁN 02/11 Released w/o Limitations Medical Group(P ES Optomet ry-Cj nee) [facility] Group(AMY C Immunizat ions (Post)) OUTPATIENT [id number] iet imm MIAN CONNELL 02/18 Released w/o Limitations [facility](M AHC Immuniz ations (Post)) Procedures Combined list of: 1) Procedures from Department of Veterans Affairs facilities going back up to thelast 18 months, not all [place] non-surgical procedures are included; 2) All procedures from the Department of Defense facilities. Procedure Procedure Type Code Date Perfomer Comments Sourc e No data available for this section Ambulato ry Pharmacy ADENOVIRUS VACCINE, TYPE 7, LIVE, FOR ORAL USE 018 [facility] FITTING OF SPECTACLES, EXCEPT FOR APHAKIA; MONOFOCAL 018 [facility] EAR MOLD/INSERT, NOT DISPOSABLE, ANY TYPE 018 [facility] Tdap Vaccine Tdap Vaccine 00171 018 MIAN CONNELL Immunization Admin Intranasal / Oral Each Additional Vaccine Immunization Admin Intranasal / Oral Each Additional Vaccine 17385 018 MIAN CONNELL Vaccines Adenovirus Type 4 Live, For Oral Use Vaccines Adenovirus Type 4 Live, For Oral Use 03440 018 MIAN CONNELL Vaccines Adenovirus Type 7 Live, For Oral Use Vaccines Adenovirus Type 7 Live, For Oral Use 29906 MIAN CONNELL [facility] Immunization Administration By Injection, One Vaccine Immunization Administration By Injection, One Vaccine 04346 MIAN CONNELL [facility] Immunization Administration By Injection, Each Additional Vaccine Immunization Administration By Injection, Each Additional Vaccine 10134 MIAN CONNELL [facility] Vaccines Viral Polio, Inactivated Vaccines Viral Polio, Inactivated 56206 MIAN CONNELL [facility] Meningococcal Conjugate Vaccine Quadrivalent Serogroups A, C, Y, W-135 MIAN CONNELL [facility] Spectacles Services Fitting Monofocal Except For Aphakia Spectacles Services Fitting Monofocal Except For Aphakia [id number] CHARITY LAL I [facility] Determination Of Refractive State Determination Of Refractive State [id number] CHARITY LAL I [facility] Ophthalmological New Patient Start Intermediate Level Care Ophthalmological New Patient Start Intermediate Level Care [id number] CHARITY LAL I [facility] Social History Combined list of available smoking, tobacco, and other social history from Department of Defense and Veterans Affairs facilities. Social History Type Response Date Comment Sourc e Sexual Orientation Ambula tory Pharmacy Gender identity Ambulator y Pharmacy Male Ambulatory Pha rmacy This section is an empty soc ial history section. DoD Assessment and Plan Combined list of future care activities from Department of Defense and Veterans Affairs facilities (e.g., assessment and plan notes, appointments, orders, and referrals). Additional future care activities may be listed in the Plan of Care section. Result Assessment and Plan Date Source Assessment and Plan No data available for this section 09/07/2024 Ambulatory Pharmacy Functional Status Combined list of recent functional and cognitive assessments recorded at Department of Defense and Veterans Affairs (VA).VA Functional Miner Measurement (FIM) Scale: 1 = Total Assistance (Subject = 0% +), 2 = Maximal Assistance (Subject = 25% +), 3 = Moderate Assistance (Subject = 50% +), 4 = Minimal Assistance (Subject = 75% +), 5 = Supervision, 6 = Modified Miner (Device), 7 = Complete Miner (Timely, Safely). Assessment Date/Time Source Assessment Type Assessment Skill Assessment Score Assessment Details No data available for this section
--- OUTSIDE RECORDS SUMMARY | 2024-09-07 10:51 | XMS_ITS | Clinical Summary ---
Author Organization [facility] Address [address] [place] [address] [address] [place] [address] Care Team Providers Care Microbiology Professor Name Role Phone Brittney Salinas MD Primary Care Provider [phone] Allergies Active Allergy Reactions Criticality Noted Date Comments Aspirin 10/22/2010 Other reaction(s): swelling: eyes Medications fluticasone (Flonase Allergy Relief) 50 MCG/ACT nasal spray Administer 1-2 sprays into affected nostril(s) at bed time. Active cetirizine (ZyrTEC) 10 MG tablet Take 1 tablet by mouth at bed time. Active Active Problems Problem Noted Date Diagnosed Date Normal oral exam 11/05/2023 Pericoronitis 10/14/2023 Overweight 04/07/2023 Assessment & Plan (04/07/2023 8:35 AM EDT): - continue working on lifestyle modifications Allergic rhinitis 10/08/2015 Immunizations Name Administration Dates Next Due DTaP 09/04/2005, 1,1999,10/20,1999 HPV, Quadrivalent 06/24/2011,10/22/2010,06/21/20 10 Hep A, ped/adol, 2 dose 06/28/2012,06/24/2011 Hep B, Adolescent or Pediatric 1999,1998,1999 Hib (HbOC) 09/23/2000, 0,1999,08/23 IPV 06/27/2003, 0,1999,08/23 Influenza Injectable Quadriv alant Preservative Free IIV4 MDCK 06/27/2022,04/23/2020 Influenza injectable quadriv alent IIV4 with preservative 04/25/2015 Influenza injectable quadriv alent preservative free 07/03/2018,06/15/2017,07/14/2016 Influenza, IIV3, injectable 05/02/2021, 0,04/12/2009 Influenza, Split (incl. panchito fied surface antigen) 07/08/2013,06/28/2012 Influenza, injectable, quadr ivalent, preservative free, pediatric 05/02/2021,09/05/2014 Influenza, live, intranasal 06/24/2011 MMR 06/27/2003,06/29/2000 Meningococcal MCV4P ACYW-135 10/08/2015,06/21/20 10 TD (adult), 2 Lf tetanus tox oid, preservative free, adsorbed 05/06/2021 Tdap 06/21/2010 Varicella 04/12/2009,06/24/2000 Social History Tobacco Use Types Packs/Day Years Used Date Smoking Tobacco: Never Smokeless Tobacco: Never Tobacco Cessation:Counseling Given: Not Answered Alcohol Use Standard Drinks/Week Comments Never 0 (1 standard drink = 0.6 oz pur e alcohol) Depression Answer Date Recorded Patient Health Questionnaire-9 Score 0 03/23/2023 Housing Stability Answer Date Recorded What is your housing situation today? I have angel patel 05/27/[address] you li ve. Do you have problems with any of the following? None of the above 05/27/2023 Food Insecurity Answer Date Recorded Within the past 12 months, y ou worried that your food would run out before you got money to buy more: Never True 05/27/2023 Within the past 12 months,th e food you bought just didn't last and you didn't have enough money to get more: Never True Transportation Answer Date Recorded In the past 12 months, has l ack of transportation kept you from medical appts, meetings, work or from getting things needed for daily living? No 05/27/2023 Utilities Answer Date Recorded In the past 12 months, has t he electric, gas, oil or water company threatened to shut off services in your home? No 05/27/2023 Depression Answer Date Recorded Patient Health Questionnaire-2 Score 0 03/23/2023 Sex and Gender Information Value Date Recorded Sex Assigned at Male 06/02/2022 10:20 AM EDT Legal Sex Male 10:20 AM EDT Gender Identity Male 06/02/2022 10:20 AM EDT Sexual Orientation Bisexual 05/06/2024 4: 14 AM EDT Last Filed Vital Signs Vital Sign Reading Time Taken Comments Blood Pressure 110/74 10/29/2023 11:02 AM EDT Pulse 64 03/23/2023 9:53 AM EDT Temperature - - Respiratory Rate 20 03/23/2023 9:53 AM EDT Oxygen Saturation - - Inhaled Oxygen Concentration - - Weight 88.5 kg (195 lb) 03/23/2023 9:53 AM EDT Height 180.3 cm (5' 11 ) 03/23/2023 9:53 AM EDT Body Mass Index 27.2 03/23/2023 9:53 AM EDT Plan of Treatment Health Maintenance Due Date Last Done Comments Alcohol/Substance Use Screening 2011 Family Planning (PISQ) 2014 Dental X-Ray: Full Mouth 09/23/2022 09/22/2019 Depression Screening 03/23/2024 03/23/2023, 03/23/20 23 COVID-19 Vaccine ( season) 2024 01/12/2021, 12/22/2020 Influenza Vaccine (#1) 2024 3, 06/27/2022, 05/02/2021, Additional history exists Dental Oral Exam 05/01/2024 10/29/2023, , 09/22/2019, Additional history exists Dental Prophylaxis 05/01/2024 10/29/2023, 0 01/29/2022, 09/22/2019, Additional history exists Dental X-Ray: Bitewings 10/29/2024 10/29/19 24, 01/29/2022, 09/22/2019, Additional history exists Tobacco Screening 11/04/2024 11/05/2023 SDOH Screening 11/19/2024 11/20/2023 DTaP/Tdap/Td Vaccines (8 - Td or Tdap) 05/06/2031 05/06/2021, 06/21/2010, 09/04/2005, Additional history exists Zoster Vaccines (1 of 2) 2049 RSV Patients and Patients Aged 60 years or older (1 - 1-dose 75+ series) 2074 Hepatitis B Vaccines Completed 1999, 1999, 1999 HIB Vaccines Completed 09/23/2000, 12/02, 1999, Additional history exists IPV Vaccines Completed 06/27/2003, 12/02, 1999, Additional history exists HPV Vaccines Completed 06/24/2011, 10/02, 06/21/2010 Hepatitis A Vaccines Completed 06/28/2012, 06/24/20 11 Meningococcal Vaccine Completed 10/08/2015, 010 HIV Screening Completed 02/17/2023, 11/2020, 10/21/2019 Hepatitis C Screening Completed 02/17/2023 , 05/06/2021, 10/21/2019 Pneumococcal Vaccine: Pediatrics (0 to 5 Years) and At-Risk Patients (6 to 49) Years) Aged Out No longer eligible based on patient's age to complete this topic RSV under 20 months Aged Out No longe r eligible based on patient's age to complete this topic Rotavirus Vaccines Aged Out No longer eligible based on patient's age to complete this topic Procedures Procedure Name Priority Date/Time Associated Diagnosis Comments Full PROPHYLAXIS - ADULT Routine 10/29/2023 11:00 AM EDT Encounter for dental examination BITEWINGS - 4 RADIOGRAPHIC IMAGES Routine 10/29/2023 11:00 AM EDT Encounter for dental examination PERIODIC ORAL EVALUATION - ESTABLISHED PATIENT Routine 10/29/2023 11:00 AM EDT Encounter for dental examination HEPATITIS C ANTIBODY REFLEX Routine 02/17/2023 10:34 AM EDT HIV 1 RNA, QUANTITATIVE REAL TIME PCR Routine 02/17/2023 10:34 AM EDT Screening for STDs (sexually transmitted diseases) DIAGNOSTIC - DIAGNOSTIC IMAGING - INTRAORAL - COMPREHENSIVE SERIES OF RADIOGRAPHIC IMAGES Routine 09/22/2019 12:00 AM EST from Last 3 Months or Most Recently Relevant to Health Maintenance Results * Hepatitis C Antibody Reflex (02/17/2023 10:34 AM EDT) Pathologist [facility] Hepatitis C Antibody Nonreactive Nonreactive [facility] Comment:Antibodies to HCV no t detected; does not exclude early acuteHCV infection. 02/17/2023 10:3 4 AM EDT 02/17/2023 11:33 AM EDT [facility] External Provider LAB BLO OD ORDERABLES Final Result Performing Organization Address [facility]/ZIP Co de Phone Number [facility] [address] [place] [phone] * HIV-1 RNA, Quantitative, Real-Time PCR (02/17/2023 10:34 AM EDT) Pathologist [facility] HIV RNA PCR Qn Copies NOT DETECTED NOT DETECTED copies/mL [facility] HIV RNA PCR Qn Log Copies NOT DETECTED NOT DETECTED [facility] Comment:Result Units: Log co pies/mLThis test was performed using Real-Time Polymerase ChainReaction.Reportable Range: 20 copies/mL to 10,000,000 copies/mL(1.30 log copies/mL to 7.00 log copies/mL).THIS TEST WAS PERFORMED AT:[facility] [address] [id number] NATH MD Blood Venous blood specimen / Unknown 02/17/2023 10:34 AM EDT 02/17/2023 11:33 AM EDT Brittney Salinas MD LAB BLOOD ORDERABLES Final Resul t Performing Organization Address City/[facility]/ZIP Co de Phone Number [facility] [address] [place] [phone] from Last 3 Months or Most Recently Relevant to Health Maintenance Insurance [facility] MEDICAID STAND ADULT Care Teams Microbiology Professor Relationship Specialty Start Date End Date Brittney Salinas MD [address] [place] [phone] PCP - General Family Medicine 08/03/18
== END 2024-09-07 11:49 | disposition home or self-care (01) ==
PROVIDERS: PCP Nurse Practitioner Family; Visit Provider Nurse Practitioner Family
DX: N48.6 Induration penis plastica (principal)

== ENCOUNTER → 2024-09-07 10:01 | Outpatient (BNVA) | payer OTHER, SELFPAY | PROVIDERS: PCP Nurse Practitioner Family; Visit Provider Nurse Practitioner Family | DX: Z02.9 Encounter for administrative examinations, unspecified (principal); N48.6 Induration penis plastica | CPT/HCPCS: 96127 ==

== ENCOUNTER 2025-06-19 11:55 | Outpatient (AMB) | payer OTHER, SELFPAY ==
--- NOTE | 2025-06-19 11:56 | MHC.PC.OV ---
Vital Signs 06/19/25 11:59 Height 5 ft 10 in Weight 172 lb BMI 24.7 BP 98/68 Blood Pressure Location Lt brachial Position Sitting Respiration 12 Pulse 68 Pulse Source Pulse Oximeter Temp 97.2 F Temp Source Oral Pulse Oximetry (%) 98 Oxygen Delivery Method Room Air Intake Visit Reasons: 1 year CPE Intake Note: CPE. Patient c/o always being cold all the time x 1 year Workplace Trainer And Assessor Required: No Allergies aspirin Allergy (Severe, Verified 06/19/25 12:07) Difficulty Breathing Medication List - Last Reconciled 06/19/25 by Pretty Andrews, MORPHOLOGY TEACHER- pentoxifylline ER 400 mg PO BID 90 days vitamin E (dl, acetate) 450 mg PO DAILY 90 days Tobacco use date assessed: 06/19/25 Dental Screening Dental Screen Date: 06/19/25 Did you have a dental visit in the last 12 months?: Yes Did you have a dental problem in the last 6 months where you did not have access to dental care?: No Was dental information given to patient?: Patient has dentist HPI HPI Comments History of Present Illness Details 24 y/o M with seasonal allergies, Pyronies Social: [place] , to male. 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 History of Present Illness The patient is a 24-year-old male presenting for CPE w/ c/o needing evaluation of cold intolerance. Cold intolerance: - For a while now, the patient has been experiencing feeling stone cold with shaking, which has become more noticeable recently. - This occurs even when the room temperature is between 60-75?F. - He reports wearing more layers, including insulated shoes and two pairs of socks, but feels he is not retaining any heat, and notes the cold sensation is getting worse. - The sensation is primarily in his feet and thighs, while his upper body remains warm. - He denies any discoloration of the skin or any open areas or sores. 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 - On his days off, he gets 6 to 8 hours of sleep and feels refreshed. - However, on days he works, he functions on approximately two hours of sleep, which makes him feel more sluggish and slower. - He is not using any sleep aids and is resistant to starting medication, hoping the issue will resolve once he finds a new job on a first or second shift. Pyronies: - The patient follows up with a urologist, Addie, and is scheduled to see her in August. - He previously paused a medication prescribed by her because his prior insurance did not cover it, resulting in an [id number] cost of nearly $250 for a 90-day supply. - He has recently switched to [employer] insurance. Past Medical History - Allergy to aspirin. Past Surgical History - No surgeries since the last visit. Family History - No changes reported in family medical history. Social History - Employment: The patient works a 10-hour, third-shift schedule and is actively seeking a new job on the first or second shift. - Sleep: He reports an irregular sleep pattern, getting only about 2 hours of sleep on workdays compared to 6-8 hours on his days off. - Nutrition: Reports a lack of appetite. - Family Status: He is . Health Maintenance - The patient received a flu shot this season. - He had an eye exam within the last year through the . - The patient is in the process of having his medical records transferred. Review of Systems - Constitutional: Reports feeling cold, shaking, and being unable to retain heat. - HEENT: Reports ears feeling full of wax but denies any sensation of blockage. - Gastrointestinal: Reports normal bowel function and lack of appetite. - Genitourinary: Reports normal urination. - Neurological/Psychiatric: Reports feeling sluggish and slower due to lack of sleep. - Musculoskeletal/Extremities: Reports that his feet and thighs feel cold. - Skin: Denies skin discoloration, open areas, or sores. Physical Exam General: Well developed, well nourished, in no acute distress. Appears stated age. Head: Normocephalic, atraumatic. Eyes: Pupils are equal, round and reactive to light and accommodation. Conjunctivae are clear. Scleras nonicteric bilat. Vision grossly normal. Ears: TMs clear AU, EACS WNL. Ears full of wax, flushed during visit. Nose: Patent, without discharge. Neck: No carotid bruit bilat. Supple, no adenopathy or thyromegaly. No pain or tenderness upon swallowing. Breast: Edu on SBE Lungs: Clear to auscultation bilaterally. No rales, rhonchi or wheeze noted. Good air flow in all mejía. Heart: Regular rate and rhythm. No murmurs, click, rubs or gallops are noted. Abdomen: Bowel sounds present in all quadrants. The abdomen is soft, nontender, with no masses or organomegaly noted. No hernias are noted. : Deferred. Reviewed [place] & recommendations Pulses: Peripheral pulses are equal and palpable bilaterally. Extremities: No clubbing, cyanosis nor edema is noted. Feet and toes feel cold to the touch, especially around the toes and heels. Neurologic: Gait and station normal. Cranial Nerves 2-12 intact. Motor strength grossly symmetrical and intact. No sensory loss. Balance normal. Skin: No rashes, ulcers, or lesions noted. Turgor is good. Skin color is good. Hair and nails are without abnormalities. Psych: Normal eye contact, affect and mood appropriate, and normal interactions. Patient is alert and appropriate to context. Results Pending Medical Decision Making The patient is a 24-year-old male presenting with a primary complaint of worsening cold intolerance, particularly in his feet. Differential diagnoses include anemia, hypothyroidism, and peripheral vascular disease. Given his third-shift work schedule and potential lack of sun exposure, vitamin D deficiency is also a consideration. Initial workup will consist of laboratory studies, including a complete blood count, thyroid-stimulating hormone, and vitamin D level, to rule out common systemic causes. Physical exam findings of cool distal extremities without signs of a critical circulation issue like discoloration or sores are noted. If the laboratory studies are normal, a referral to a vascular specialist will be initiated to evaluate for a possible vasospastic disorder. Separately, the patient has bilateral cerumen impaction, which will be addressed with an in-office ear lavage today. He was counseled to contact his urologist to resume a prescribed medication now that he has new insurance coverage which should make it affordable. His sleep disturbance is significant but he declines intervention at this time, attributing it to his shift work and planning to seek alternative employment. Plan 1. Cold Intolerance - Laboratory studies will be ordered today to evaluate for potential underlying causes such as thyroid issues, anemia, or vitamin D deficiency. - The results will be communicated to the patient via the online portal. - If the blood work is normal, a referral will be made to a vascular specialist to investigate for a potential vascular constriction disorder. 2. Bilateral Cerumen Impaction - The patient will undergo bilateral ear lavage during today's visit to remove the impacted wax. 3. Sleep Disturbance Due To Shift Work - The patient declined pharmacological intervention at this time, preferring to address the issue by finding a job with a first or second shift schedule. 4. Medication Management - The patient has been advised to contact his urologist, Addie, via the patient portal to update his new insurance information () and have his prescription resent to the pharmacy. Patient Instructions - Please go to the lab today to have your blood drawn. - We will send you your results through the patient portal when they are available. - If your lab tests are normal, we may refer you to a vascular specialist, and we will let you know via the portal. - We will have someone come in to flush the wax from your ears during this visit. - Contact your urologist's office through their online portal to let them know about your new insurance and ask them to resend your prescription to the pharmacy. - RTO 1 year CPE sooner as needed. Consent The patient provided verbal consent for a blood draw for laboratory testing. The patient provided verbal consent for bilateral ear lavage to address cerumen impaction. The patient also gave verbal consent to receive his test results via the secure patient portal. Patient was informed and verbally consented to the use of an ambient scribe for clinic note documentation during this visit. An additional 10 minutes was spent addressing the problem(s) noted at todays visit. This includes time spent before the visit reviewing the chart, time spent during the visit, and time spent after the visit on documentation reviewing laboratory results, diagnostic imaging, medications, performing a medically necessary evaluation, counseling on diagnoses, care coordination, ordering appropriate tests, ordering appropriate medications, review of tests performed by other providers, reporting test results with the patient, communication with other healthcare providers. [facility] Medical History No pertinent past medical history Surgical History No pertinent past surgical history Family History Maternal Grandmother Diabetes Hypertension Mother Hypertension Social History Household Members: Significant Other Both parents involved: No Caregiver staying overnight: No Housing: House Are you a primary memory care director to a significant other at home: No Do you presently have visiting nurse or other home services: No 75 years or older and lives alone: No Alcohol intake: current Alcohol intake frequency: a few times a month Patient Tobacco Use Status: Never used Tobacco e-Cigarette/Vaping Use: Never Used Second Hand Smoke Exposure: No service: No Current occupational status: employed Current occupation: security Cognitive needs: No Hearing needs: No Vision needs: Yes (wear glasses) Questionnaire PHQ-9 Over the last 2 weeks, how often have you been bothered by any of the following problems? 1. Little interest or pleasure in doing things: not at all 2. Feeling down, depressed, or hopeless: not at all 3. Trouble falling or staying asleep, or sleeping too much: not at all 4. Feeling tired or having little energy: not at all 5. Poor appetite or overeating: not at all 6. Feeling bad about yourself - or that you are a failure or have let yourself or your family down: not at all 7. Trouble concentrating on things, such as reading the newspaper or watching television: not at all 8. Moving or speaking so slowly that other people could have noticed. Or the opposite - being so fidgety or restless that you have been moving around a lot more than usual: not at all 9. Thoughts that you would be better off or of hurting yourself in some way: not at all Total score: 0 Depression Screening Interpretation: Negative Depression Screening Done: Yes 21503 - PHQ-9 Billing: Yes Source: Developed by Drs. Martin Khan, Cecilia Soto, Benjamin Jon and colleagues, with an educational ember from [employer]. Thrive Questionnaire Date Thrive assessed: 06/19/25 I am a: Patient What is your living situation today?: I have a steady place to live Within the past 12 months, did the food you bought not last and you didn't have the money to get more?: Never true Within the past 12 months, did you worry whether your food would run out before you got money to buy more?: Never true Do you have trouble paying for medicines?: No Do you have trouble getting transportation to medical appointments?: No Do you have trouble paying your heating and electricity bill?: No Do you have trouble taking care of your child, family member or friend?: No Do you have trouble with day-to-day activities such as bathing, preparing meals, shopping, managing finances, etc.?: No Are you currently unemployed and looking for a job?: No Are you interested in more education?: No Please select the resources that you would like help with: None Currently or been in a relationship where the following occur: No concerns reported THRIVE Score: 0 PEARL-7 AMB Questionnaire PEARL-7 Date PEARL - 7 assessed: 06/19/25 Feeling nervous, anxious, or on edge: 0 = Not at all Not being able to stop or control worryin = Not at all Worrying too much about different things: 0 = Not at all Trouble relaxin = Not at all Being so restless that it is hard to sit still: 0 = Not at all Becoming easily annoyed or irritable: 0 = Not at all Feeling afraid as if something awful might happen: 0 = Not at all Total PEARL-7 score (0-4 normal; 5-9 mild; 10-14 moderate; 15-21 severe): 0 Source: Developed by Drs. Martin Khan, Cecilia Soto, Benjamin Jon and colleagues, with an educational ember from [employer]. PEARL-7 Assessment Billing PEARL-7 Assessment Tool: PEARL-7 Assessment 57840 Physical exam (Primary Care) Vital Signs: Last Vital Signs Temp 97.2 F 06/19/25 11:59 Pulse 68 06/19/25 11:59 Resp 12 06/19/25 11:59 BP 98/68 06/19/25 11:59 Pulse Ox 98 06/19/25 11:59 Oxygen Delivery Method Room Air 06/19/25 11:59 BMI result Body Mass Index 24.7 Tobacco/Smoking Status: Tobacco use Status Tobacco use date assessed 06/19/25 06/19/25 12:00 Patient Tobacco Use Status Never used Tobacco 06/19/25 12:00 e-Cigarette/Vaping Use Never Used 06/19/25 12:00 PHQ-9: PHQ-9 Score PHQ-9: Total score 0 06/19/25 12:14 Depression Screening Interpretation: Negative Thrive Assessment: Date of Thrive Assessment Date Thrive assessed 06/19/25 06/19/25 12:00 Currently or been in a relationship where the following occur: No concerns reported Office Procedures Cerumen Removal From which ear canal was the cerumen removed: bilateral Removal: irrigation Notes: patient tolerated procedure well, no complications and ear canal clear [id number] Irrigation/Lavage Coding Level of Care Code Est Pt Level 2 (80868) Est Pt Prev Care 18-39y(98714) Diagnoses Adult general medical exam Z00.00 Peyronie's disease N48.6 Seasonal allergies J30.2 Laboratory exam ordered as part of routine general medical examination Z00.00 Sleep disorder, 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 Impacted cerumen, bilateral H61.23 Cold hands and feet without peripheral vascular disease R20.8 CPT Codes Office Procedure - CPT: 12700-Zrz Irrigation/Lavage ([id number]) Additional Codes PEARL-7 Assessment Billing - PEARL-7 Assessment Tool: PEARL-7 Assessment 17561 ([id number]) PHQ-9 - 02913 - PHQ-9 Billing: Yes ([id number]) Assessment & Plan Assessment & Plan (1) Adult general medical exam: Onset Date: ~06/19/25 Code(s): Z00.00 - Encounter for general adult medical examination without abnormal findings Category: Medical (2) Peyronie's disease: Code(s): N48.6 - Induration penis plastica Category: Medical (3) Seasonal allergies: Code(s): J30.2 - Other seasonal allergic rhinitis Category: Medical (4) Laboratory exam ordered as part of routine general medical examination: Code(s): Z00.00 - Encounter for general adult medical examination without abnormal findings Category: Medical (5) Sleep disorder, shift work: Code(s): G47.26 - Circadian rhythm sleep disorder, shift work type Category: Medical (6) Impacted cerumen, bilateral: Code(s): H61.23 - Impacted cerumen, bilateral (7) Cold hands and feet without peripheral vascular disease: Code(s): R20.8 - Other disturbances of skin sensation Plan . Orders: Orders Complete Blood Count no Diff Today Z00.00 - Encounter for general adult medical examination without abnormal findings Hemoglobin A1c Today Z00.00 - Encounter for general adult medical examination without abnormal findings Lipid Panel Today Z00.00 - Encounter for general adult medical examination without abnormal findings Microalbumin, Random (w Creat) Today Z00.00 - Encounter for general adult medical examination without abnormal findings Vitamin D 25-OH Total Today Z00.00 - Encounter for general adult medical examination without abnormal findings IRON PROFILE Today Z00.00 - Encounter for general adult medical examination without abnormal findings Comprehensive Met. Panel Today Z00.00 - Encounter for general adult medical examination without abnormal findings TSH reflex Free T4 Today Z00.00 - Encounter for general adult medical examination without abnormal findings Vitamin B12 and Folate Today Z00.00 - Encounter for general adult medical examination without abnormal findings Ferritin Today Z00.00 - Encounter for general adult medical examination without abnormal findings Patient Instructions: Health screenings for men You should visit your health care provider regularly, even if you feel healthy. The purpose of these visits is to: Screen for medical issues Assess your risk for future medical problems Encourage a healthy lifestyle Update vaccinations and other preventive care services Help you get to know your provider in case of an illness Information Even if you feel fine, you should still see your provider for regular checkups. These visits can help you avoid problems in the future. For example, the only way to find out if you have high blood pressure is to have it checked regularly. High blood sugar and high cholesterol level also may not have any symptoms in the early stages. Simple blood tests can check for these conditions. There are specific times when you should see your provider or receive specific health screenings. The [place] Preventive Services Task Force publishes a list of recommended screenings. Below are screening guidelines for men ages 40 to 64. BLOOD PRESSURE SCREENING Have your blood pressure checked at least once every year. Watch for blood pressure screenings in your area. Ask your provider if you can stop in to have your blood pressure checked. Ask your provider if you need your blood pressure checked more often if: You have diabetes, heart disease, kidney problems, or are overweight or have certain other health conditions You have a first-degree relative with high blood pressure You are Black Your blood pressure top number is from 120 to 129 mm Hg, or the bottom number is from 70 to 79 mm Hg If the top number is 130 mm Hg or greater or the bottom number is 80 mm Hg or greater, this is considered stage 1 hypertension. Schedule an appointment with your provider to learn how you can lower your blood pressure. Effects of age on blood pressure CHOLESTEROL SCREENING Cholesterol screening should begin at age 35 for men with no known risk factors for coronary heart disease. Repeat cholesterol screening should take place: Every 5 years for men with normal cholesterol levels More often if changes occur in lifestyle (including weight gain and diet) More often if you have diabetes, heart disease, kidney problems, or certain other conditions COLORECTAL CANCER SCREENING If you are under age 45, talk to your provider about getting screened. You may need to be screened if you have a strong family history of colon cancer or polyps. Screening may also be considered if you have risk factors such as a history of inflammatory bowel disease or polyps. If you are age 45 to 75, you should be screened for colorectal cancer. There are several screening tests available: A stool-based fecal occult blood (gFOBT) or fecal immunochemical test (FIT) every year A stool sDNA test every 1 to 3 years Flexible sigmoidoscopy every 5 years or every 10 years with stool testing FIT done every year CT colonography (virtual colonoscopy) every 5 years Colonoscopy every 10 years You may need a colonoscopy more often if you have risk factors for colorectal cancer, such as: Ulcerative colitis A personal or family history of colorectal cancer A history of growths in your colon called adenomatous polyps DENTAL EXAM Go to the dentist once or twice every year for an exam and cleaning. Your dentist will evaluate if you have a need for more frequent visits. DIABETES SCREENING All adults who do not have risk factors for diabetes should be screened starting at age 35 and repeated every 3 years. If you have other risk factors for diabetes, such as a first degree relative with diabetes, overweight or obesity, high blood pressure, prediabetes, or a history of heart disease, you may be tested more often. If you are overweight and have other risk factors, such as high blood pressure and are planning to become , screening is recommended. EYE EXAM Have an eye exam every 2 to 4 years ages 40 to 54 and every 1 to 3 years ages 55 to 64. Your provider may recommend more frequent eye exams if you have vision problems or glaucoma risk. Have an eye exam that includes an examination of your retina (back of your eye) at least every year if you have diabetes. IMMUNIZATIONS Commonly needed vaccines include: Flu shot: get one every year COVID-19 vaccine: ask your provider what is best for you Tetanus-diphtheria and acellular pertussis (Tdap) vaccine: have as one of your tetanus-diphtheria vaccines if you did not receive it as an adolescent Tetanus-diphtheria: have a booster (or Tdap) every 10 years Varicella vaccine: receive 2 doses if you never had chickenpox or the varicella vaccine and were born in 1980 or after Hepatitis B vaccine: receive 2, 3, or 4 doses, depending on your exact circumstances, if you did not receive these as a child or adolescent, until age 59 Shingles (herpes zoster) vaccine: at or after age 50 Ask your provider if you should receive other immunizations, especially if you have certain medical conditions, such as diabetes or are at increased risk for some diseases such as pneumonia. INFECTIOUS DISEASE SCREENING Screening for hepatitis C: all adults ages 18 to 79 should get a one-time test for hepatitis C. Screening for human immunodeficiency virus (HIV): all people ages 15 to 65 should get a one-time test for HIV. Depending on your lifestyle and medical history, you may need to be screened for infections such as syphilis, chlamydia, and other infections. LUNG CANCER SCREENING You should have an annual screening for lung cancer with low-dose computed tomography (LDCT) if: You are age 50 to 80 years AND You have a 20 pack-year smoking history AND You currently smoke or have quit within the past 15 years OSTEOPOROSIS SCREENING If you are age 50 to 64 and have risk factors for osteoporosis, you should discuss screening with your provider. Risk factors can include long-term steroid use, low body weight, smoking, heavy alcohol use, having a fracture after age 50, or a family history of hip fracture or osteoporosis. Osteoporosis PHYSICAL EXAM All adults should visit their provider from time to time, even if they are healthy. The purpose of these visits is to: Screen for diseases Assess risk of future medical problems Encourage a healthy lifestyle Update vaccinations and other preventive care services Maintain a relationship with a provider in case of an illness Your height, weight, and body mass index (BMI) should be checked at every exam. During your exam, your provider may ask you about: Depression and anxiety Diet and exercise Alcohol and tobacco use Safety, such as use of seat belts and smoke detectors Your medicines and risk for interactions PROSTATE CANCER SCREENING If you're 55 through 69 years old, before having the test, talk to your provider about the pros and cons of having a PSA test. Ask about: Whether screening decreases your chance of dying from prostate cancer. Whether there is any harm from prostate cancer screening, such as side effects from testing or overtreatment of cancer when discovered. Whether you have a higher risk of prostate cancer than others. If you are age 55 or younger, screening is not generally recommended. You should talk with your provider about if you have a higher risk for prostate cancer. Risk factors include: Having a family history of prostate cancer (especially a brother or father) Being If you choose to be tested, the PSA blood test is repeated over time (yearly or less often), though the best frequency is not known. Prostate examinations are no longer routinely done on men with no symptoms. Prostate cancer SKIN EXAM Your provider may check your skin for signs of skin cancer, especially if you're at high risk. People at high risk include those who have had skin cancer before, have close relatives with skin cancer, or have a weakened immune system. TESTICULAR EXAM The [place] Preventive Services Task Force (USPSTF) now recommends against performing testicular self-exams. Doing testicular self-exams has been shown to have little to no benefit.
[2025-06-19 11:59] VITALS: BP 98/68; PULSE 68; RESP 12; TEMP 36.2; O2SAT 98; BMI 24.7
== END 2025-06-19 12:40 | disposition home or self-care (01) ==
LOC: HO.HMCFM 11:55
PROVIDERS: PCP Nurse Practitioner Family; Visit Provider Nurse Practitioner Family
DX: Z00.00 Encounter for general adult medical examination without abnormal findings (principal); N48.6 Induration penis plastica; J30.2 Other seasonal allergic rhinitis; G47.26 Circadian rhythm sleep disorder, shift work type; H61.23 Impacted cerumen, bilateral; R20.8 Other disturbances of skin sensation

== ENCOUNTER → 2025-06-19 11:55 | Outpatient (BNVA) | payer OTHER, SELFPAY | PROVIDERS: PCP Nurse Practitioner Family; Visit Provider Nurse Practitioner Family | DX: Z00.00 Encounter for general adult medical examination without abnormal findings (principal); D50.9 Iron deficiency anemia, unspecified; E55.9 Vitamin D deficiency, unspecified; N48.6 Induration penis plastica; H61.23 Impacted cerumen, bilateral; J30.2 Other seasonal allergic rhinitis; G47.26 Circadian rhythm sleep disorder, shift work type; R20.8 Other disturbances of skin sensation | CPT/HCPCS: 69209; 96127; 99212 ==

== ENCOUNTER 2025-06-21 10:57 | Outpatient (REF) | payer OTHER, SELFPAY ==
[2025-06-21 14:16] LABS: Hematocrit 39.2 % (42.0-52.0); Hemoglobin 13.1 g/dl (14.0-18.0); Mean Corpuscular HGB Conc 33.4 g/dl (31.0-36.0); Mean Corpuscular Hemoglobin 29.2 pg (27.0-33.0); Mean Corpuscular Volume 87.3 fL (80.0-98.0); NRBC Abs Auto 0.000 X10*3/uL (0.0-0.012); NRBC Pct Auto 0.0 /100WBC (0.0-0.2); Platelet Count 293 X10*3/uL (160-400); Red Blood Count 4.49 X10*6/uL (4.60-5.80); White Blood Count 4.5 X10*3/uL (4.8-10.8)
[2025-06-21 15:44] LABS: Alanine Aminotransferase 13 U/L (0-40); Albumin Level 4.4 g/dL (3.5-5.0); Alkaline Phosphatase 41 U/L (39-117); Anion Gap 9 (12-20); Aspartate Amino Transferase 26 U/L (5-37); Blood Urea Nitrogen 9 mg/dL (9-16); Calcium 8.8 mg/dL (8.4-10.2); Carbon Dioxide 28 mmol/L (22-29); Chloride 109 mmol/L (96-108); Cholesterol 131 mg/dL (<200); Estimated Glomerular Filt Rate > 60; HDL Cholesterol 46 mg/dL (>40); Iron 117 mcg/dL (45-160); Percent Iron Saturation 55 % (15-50); Potassium 3.9 mmol/L (3.3-5.1); Sodium 142 mmol/L (135-145); Total Iron Binding Capacity 212 mcg/dL (228-428); Total Protein 6.6 g/dL (6.5-8.0); Triglycerides 47 mg/dL (<150); Unsaturated Iron Binding 95 ug/dL
[2025-06-21 16:00] LABS: Ferritin 306 ng/mL (20-250)
[2025-06-21 16:11] LABS: Folate 7.3 ng/mL (> or = 4.0); Vitamin B12 461 pg/mL (200-900)
--- OUTSIDE RECORDS SUMMARY | 2025-06-21 21:37 | XMS_ITS | Clinical Summary ---
Author Organization [employer] Address [address] [place] [address] [address] [place] [address] Care Team Providers Care Dental Cream Maker Name Role Phone Brittney [place] MD Primary Care Provider [phone] Allergies Active Allergy Reactions Criticality Noted Date [...] on lifestyle modifications Allergic rhinitis 10/08/2015 Immunizations Immunization Administration Dates Next Due DTaP 09/04/2005, 1,1999,10/20,1999 [...] Health Maintenance Due Date Last Done Comments Disability Screening 1999 Alcohol/Substance Use Screening 2011 Family Planning (PISQ) 2014 Dental X-Ray: Full Mouth 09/23/2022 09/22/2019 Depression Screening 03/23/2024 03/23/2023, 03/23/20 23 Dental Oral Exam 05/01/2024 10/29/2023, , 09/22/2019, Additional history exists Dental Prophylaxis 05/01/2024 10/29/2023, 0 01/29/2022, 09/22/2019, Additional history exists Dental X-Ray: Bitewings 10/29/2024 10/29/19 24, 01/29/2022, 09/22/2019, Additional history exists Tobacco Screening 11/04/2024 11/05/2023 SDOH Screening 11/19/2024 11/20/2023 COVID-19 Vaccine ( season) 2025 01/12/2021, 12/22/2020 Influenza Vaccine (#1) 2025 , 06/27/2022, 05/02/2021, Additional history exists DTaP/Tdap/Td Vaccines (8 - Td or Tdap) [...] C Screening Completed 02/17/2023 , 05/06/2021, 10/21/2019 Meningococcal B Vaccine Aged Out No l onger eligible based on patient's age to complete this topic Pneumococcal Vaccine: Pediatrics (0 to 5 Years) and At-Risk Patients (6 to 49) Years Aged Out No longer eligible based on [...] EDT Screening for STDs (sexually transmitted diseases) INTRAORAL - COMPLETE SERIES OF RADIOGRAPHIC IMAGES Routine 09/22/2019 12:00 AM EST from Last 3 Months or Most Recently Relevant to Health Maintenance Results * Hepatitis C Antibody Reflex (02/17/2023 10:34 AM EDT) Hepatitis C Antibody Nonreactive Nonreactive [facility] Comment:Antibodies to HCV no t detected; does not exclude early acuteHCV infection. 02/17/2023 10:3 4 AM EDT 02/17/2023 11:33 AM EDT [facility] External Provider LAB BLO OD ORDERABLES Final Result Performing Organization Address [facility] Co de Phone Number [facility] [address] [place] [phone] * HIV-1 RNA, Quantitative, Real-Time PCR (02/17/2023 10:34 AM EDT) HIV RNA PCR Qn Copies NOT DETECTED NOT DETECTED copies/mL [facility] HIV RNA PCR Qn Log Copies NOT DETECTED NOT DETECTED [facility] Comment:Result Units: Log co pies/mLThis test was performed using Real-Time Polymerase ChainReaction.Reportable Range: 20 copies/mL to 10,000,000 copies/mL(1.30 log copies/mL to 7.00 log copies/mL).THIS TEST WAS PERFORMED AT:[id number] [place] [id number] NATH MD Blood Venous blood specimen / Unknown 02/17/2023 10:34 AM EDT 02/17/2023 11:33 AM EDT Brittney [place] MD LAB BLOOD ORDERABLES Final Resul t Performing Organization Address [facility] Co de Phone Number [facility] [address] [place] [phone] from Last 3 Months or Most Recently Relevant to Health Maintenance Insurance [employer] MEDICAID STAND ADULT Care Teams Dental Cream Maker Relationship Specialty Start Date End Date Brittney [place] MD [address] [place] [phone] PCP - General Family Medicine 08/03/18
--- OUTSIDE RECORDS SUMMARY | 2025-06-21 21:37 | XMS_ITS | Encounter Summary ---
Author Organization [employer] Address [address] [place] [address] [address] [place] [address] Care Team Providers Care Sleeping Car Service Attendant Name Role Phone Brittney [place] MD Primary Care Provider [phone] Encounter Details Date Type Department Care Team [...] on filedocumented in this encounter Care Teams Sleeping Car Service Attendant Relationship Specialty Start Date End Date Brittney [place] MD [address] [place] [phone] PCP - General Family Medicine 08/03/18 documented as of this encounter
--- OUTSIDE RECORDS SUMMARY | 2025-06-21 21:37 | XMS_ITS | Encounter Summary ---
Author Organization [email or web address] Address [address] [place] [address] [address] [place] [address] Care Team Providers Care Nurse Practitioner Manager Name Role Phone Brittney [place] MD Primary Care Provider [phone] Encounter Details Date Type Department Care Team [...] on filedocumented in this encounter Care Teams Nurse Practitioner Manager Relationship Specialty Start Date End Date Brittney [place] MD [address] [place] [phone] PCP - General Family Medicine 08/03/18 documented as of this encounter
== END 2025-06-21 10:58 | disposition home or self-care (01) ==
LOC: HO.WFDLDS 10:57
PROVIDERS: Visit Provider Nurse Practitioner Family
DX: Z00.00 Encounter for general adult medical examination without abnormal findings (principal); Z13.6 Encounter for screening for cardiovascular disorders; Z13.0 Encounter for screening for diseases of the blood and blood-forming organs and certain disorders involving the immune mechanism; Z13.1 Encounter for screening for diabetes mellitus; Z13.21 Encounter for screening for nutritional disorder; Z13.29 Encounter for screening for other suspected endocrine disorder
CPT/HCPCS: 36415; 80053; 80061; 82306; 82570; 82607; 82728; 82746; 83036; 83540; 84443; 85027